=== PATIENT | female | born 1980 | race Two or more races ===

== ENCOUNTER 2022-09-15 15:22 | Emergency (ER) | payer OTHER ==
[~2022-09-15] VITALS: Ht 170.2 cm; Wt 75.7 kg
[2022-09-15] MEDS ORDERED: AMLODIPINE-OLM1 EAC2 (15:32)
[2022-09-15] MEDS ORDERED: MILLIPRED5 MG (15:32)
[2022-09-15] MEDS ORDERED: [UNRECOGNIZED DRUG - SUPPLY] (15:32)
== END 2022-09-15 17:45 | disposition home or self-care (01) ==
LOC: ER 15:22
DX: K29.70 Gastritis, unspecified, without bleeding (principal)